=== PATIENT | female | born 1965 | race Caucasian/White ===

== ENCOUNTER 2019-11-15 17:11 | Emergency (ER) | payer OTHER ==
[2019-11-15] MEDS ORDERED: ACETAMINOPHEN EXTRA STRENGTH 500 MG TABLET ONE (17:56)
[2019-11-15] MEDS ORDERED: LIDOCAINE 5% TOPICAL PATCH TP ONE (17:57)
== END 2019-11-15 18:20 | disposition home or self-care (01) ==
LOC: EDH 17:11
DX: S46.812A Strain of other muscles, fascia and tendons at shoulder and upper arm level, left arm, initial encounter (principal); Z72.0 Tobacco use; V59.59XA Passenger in pick-up truck or van injured in collision with other motor vehicles in traffic accident, initial encounter; Y93.89 Activity, other specified; Y92.89 Other specified places as the place of occurrence of the external cause; Y99.8 Other external cause status